=== PATIENT | male | born 1950 | race African-American/Black ===

== ENCOUNTER 2017-11-19 14:08 | Outpatient (CLI) | payer SELFPAY | END 2017-11-19 14:09 | disposition home or self-care (01) | LOC: BICRAD 14:08 | PROVIDERS: ATTEND Radiology Diagnostic Radiology | DX: Z13.89 Encounter for screening for other disorder (principal) | CPT/HCPCS: 71046 ==

== ENCOUNTER 2020-02-24 13:28 | Outpatient (CLI) | payer MEDICARE ==
--- NOTE | 2020-02-24 13:46 | RAD ---
EXAM: Chest 2 views: HISTORY: Shortness of breath COMPARISON: 11/19/2017 FINDINGS: There is a normal-sized cardiomediastinal silhouette. There is stable elevation the right hemidiaphr agm. There is no evidence of consolidation, mass, or pleural effusion. Stable changes are seen in the right posterior ribs. IMPRESSION: No evidence of acute cardiopulmonary disease
== END 2020-02-24 13:29 | disposition home or self-care (01) ==
LOC: RAD-FRANK 13:28
PROVIDERS: ATTEND Nurse Practitioner Family
DX: R06.02 Shortness of breath (principal)
CPT/HCPCS: 71046

== ENCOUNTER 2025-05-20 13:29 | Emergency (ER) | payer MEDICARE, OTHER ==
[2025-05-20 15:32] LABS: #Basophils 0.03 10x3/uL (0.0-0.2); #Eosinophils 0.04 10x3/uL (0.0-0.7); #Monocytes 0.46 10x3/uL (0.11-0.59); #Neutrophils 2.05 10x3/uL (1.40-6.50); %Basophils 0.8 % (0.0-1.0); %Eosinophils 1.0 % (0.0-10.0); %Lymphocytes 34.6 % (21.0-51.0); %Monocytes 11.6 % (0.0-10.0); %Neutrophils 51.7 % (42.0-75.0); Hematocrit 40.7 % (42.0-52.0); Hemoglobin 13.0 g/dL (14.0-18.0); Mean Corpuscular Hemoglobin 31.2 pg (27.0-31.0); Mean Corpuscular Volume 97.6 fL (78.0-98.0); Platelet Count 209 10x3/uL (130-400); Red Blood Cell (RBC) Count 4.17 mill/uL (4.70-6.10); White Blood Cell (WBC) Count 3.96 10x3/uL (4.8-10.8)
[2025-05-20 17:11] LABS: ALT (SGPT) 9 U/L (Less than 45); AST (SGOT) 25 U/L (11-34); Albumin 3.5 g/dL (3.1-4.5); Alkaline Phosphatase 65 U/L (40-110); Anion Gap 13 mmol/L (10-20); BUN (Urea Nitrogen) 9 mg/dL (8.4-25.7); Bilirubin, Total 1.0 mg/dL (0.3-1.2); Calc. Creatinine Clearance 0 mL/min (70-130); Calcium 9.1 mg/dL (7.8-10.44); Carbon Dioxide 23 mmol/L (23-31); Chloride 109 mmol/L (98-107); Globulin 3.0 g/dL (2.4-3.5); Glucose 78 mg/dL (83-110); Potassium 4.1 mmol/L (3.5-5.1); Sodium 141 mmol/L (136-145)
== END 2025-05-20 17:16 | disposition home or self-care (01) ==
LOC: ERS 13:29
DX: R07.89 Other chest pain (principal); Z87.891 Personal history of nicotine dependence
CPT/HCPCS: 71045; 80053; 84484; 85025; 93005